=== PATIENT | male | born 1995 | race Caucasian/White ===

== ENCOUNTER 2021-03-16 19:30 | Emergency (ER) | payer BC ==
[~2021-03-16 19:30] MED LIST: MEDROL4 MG PO; NORCO 5-325 TA1 EACH PO
[2021-03-16] MEDS ORDERED: BACITRACIN3.5 GM TOP (20:08)
[2021-03-16] MEDS ORDERED: CEPHALEXIN500 MG PO (20:08)
== END 2021-03-16 20:42 | disposition home or self-care (01) ==
LOC: ER1 19:30
DX: S61.442A Puncture wound with foreign body of left hand, initial encounter (principal); Z23 Encounter for immunization; I10 Essential (primary) hypertension; W01.10XA Fall on same level from slipping, tripping and stumbling with subsequent striking against unspecified object, initial encounter; Y92.009 Unspecified place in unspecified non-institutional (private) residence as the place of occurrence of the external cause
CPT/HCPCS: 73130; 90471; 90715; 99283